=== PATIENT | male | born 1995 | race Caucasian/White ===

== ENCOUNTER 2021-10-23 18:06 | Emergency (ER) | payer OTHER ==
[~2021-10-23] VITALS: Ht 182.9 cm; Wt 72.6 kg
[2021-10-23 19:34] LABS: Salicylate < 1.7 mg/dL (2.8-20.0)
[2021-10-23 19:36] LABS: Acetaminophen < 2.0 ug/mL (10-30)
[2021-10-23 21:10] VITALS: BP 132/76
== END 2021-10-24 05:22 | disposition home or self-care (01) ==
LOC: ER 18:06 → EDBD 18:06 → ER 10-24 05:22
DX: F20.9 Schizophrenia, unspecified (principal)
CPT/HCPCS: 36415; 80320; 80329

== ENCOUNTER 2021-11-10 00:58 | Emergency (ER) | payer OTHER ==
[~2021-11-10] VITALS: Ht 182.9 cm; Wt 72.6 kg
[2021-11-10 01:08] VITALS: BP 158/107
== END 2021-11-10 03:31 | disposition left against medical advice (07) ==
LOC: EDBD 00:58 → ER 00:58
DX: F20.9 Schizophrenia, unspecified (principal)

== ENCOUNTER 2021-12-07 10:41 | Emergency (ER) | payer OTHER ==
[~2021-12-07] VITALS: Ht 182.9 cm; Wt 68.0 kg
[2021-12-07 10:43] VITALS: BP 142/94
== END 2021-12-07 14:23 | disposition left against medical advice (07) ==
LOC: ER 10:41
DX: H92.01 Otalgia, right ear (principal); Z53.21 Procedure and treatment not carried out due to patient leaving prior to being seen by health care provider

== ENCOUNTER 2022-01-28 10:21 | Emergency (ER) | payer OTHER ==
[~2022-01-28] VITALS: Ht 177.8 cm; Wt 87.5 kg
[2022-01-28 10:50] VITALS: BP 150/98
== END 2022-01-28 11:23 | disposition home or self-care (01) ==
LOC: ER 10:21
DX: S81.012D Laceration without foreign body, left knee, subsequent encounter (principal); X58.XXXD Exposure to other specified factors, subsequent encounter